=== PATIENT | female | born 1995 | race Hispanic/Latino ===

== ENCOUNTER 2023-02-23 21:43 | Emergency (ER) | payer SELFPAY ==
--- OUTSIDE RECORDS SUMMARY | 2023-02-23 21:46 | XMS REPORT | Continuity of Care Document ---
Author Name Unknown Address [address] [facility] [address] [place] [address] [facility] thconnect Address [address] [facility] [address] [place] [address] Care Team Providers Care Barge Captain Name Role Phone Doctor Unassigned, [place] Attending Clinician U DR BIBI Ngo Attending Clinician DR BIBI De La Cruz Admitting Clinician Tom sr Payers Payer Name Policy Type Policy Number Effective Date Expirati on Date Source Problems Condition Name Condition Details Condition Category Status Onset Date Resolution Date Last Treatment Date Treating Clinician Comments Source Tobacco use disorder Tobacco use disorder Disease Active 03-21 00:00: 00 [facility] BMI 26.0-26.9, adult BMI 26.0-26.9, adult Disease Active 03-21 00:00: 00 [facility] Status post tubal ligation Status post tubal ligation Disease Active 2017-03 00:00: 00 [facility] Allergies, Adverse Reactions, Alerts Allergy Name Allergy Type Status Severity Reaction(s) Onset Date Inactive Date Treating Clinician Comments Source Seafood/ Fish Propensi ty to adverse reaction s Active Hives 2016-03 00:00: 00 [facility] Social History Social Habit Start Date Stop Date Quantity Comments Source History of tobacco use 2011-03-11 00:00:00 Cigarette Smoker [facility] of Social function 2018-09-20 00:00:00 2018-09-20 00:00:00 [facility] Tobacco use and exposure 2018-03-21 00:00:00 2018-03-21 00:00:00 Smokeless tobacco non-user [facility] Alcohol intake 2018-03-21 00:00:00 2018-03-21 00:00:00 Current non-drinker of alcohol (finding) [facility] Tobacco Comment 2018-03-21 00:00:00 2018-03-21 00:00:00 smokes 3-4cigarettes per day [facility] Sex Assigned At 1995 00:00:00 1995 00:00:00 [facility] Smoking Status Start Date Stop Date Source Smokes tobacco daily 2018-03-21 00:00:00 [facility] Medications Ordered Medication Name Filled Medication Name Start Date Stop Date Current Medication? Ordering Clinician Indication Dosage Frequency Signature (SIG) Comments Components Source ferrous sulfate 325 mg (65 mg iron) tablet 2017-03 00:00: 00 Yes 325mg Take 1 tablet by mouth 2 (two) times daily. [facility] ferrous sulfate 325 mg (65 mg iron) tablet 2017-03 00:00: 00 Yes 325mg Take 1 tablet by mouth 2 (two) times daily. [facility] ferrous sulfate 325 mg (65 mg iron) tablet 2017-03 00:00: 00 Yes 325mg Take 1 tablet by mouth 2 (two) times daily. [facility] Immunizations Ordered Immunization Name Filled Immunization Name Date Status Comments Source Influenza Virus Vaccine Quad IM 3+ YRS Unknown Completed [facility] TDAP Unknown Completed [facility] MMR Unknown Completed [facility] Influenza Virus Vaccine Quad .5 mL IM 6+ MO (FLUZONE/FLULAVAL/FL UARIX) Unknown Completed [facility] Influenza Virus Vaccine Quad IM 3+ YRS Unknown Completed [facility] TDAP Unknown Completed [facility] MMR Unknown Completed [facility] Influenza Virus Vaccine Quad .5 mL IM 6+ MO (FLUZONE/FLULAVAL/FL UARIX) Unknown Completed [facility] Influenza Virus Vaccine Quad IM 3+ YRS Unknown Completed [facility] TDAP Unknown Completed [facility] MMR Unknown Completed [facility] Influenza Virus Vaccine Quad .5 mL IM 6+ MO (FLUZONE/FLULAVAL/FL UARIX) Unknown Completed [facility] Encounters Start Date/Time End Date/Time Encounter Type Admission Type Attending [facility] Care Department Encounter ID Source 2022-10-21 00:00:00 2022-10-21 00:00:00 Patient Secure Msg Doctor Unassigned, [place] [facility] [id number] [facility] 2022-10-21 00:00:00 2022-10-21 00:00:00 Patient Secure Msg Doctor Unassigned, [place] [facility] [id number] [facility] 2022-10-21 00:00:00 2022-10-21 00:00:00 Patient Secure Msg Doctor Unassigned, [place] [facility] [id number] [facility] 2019-02-12 19:26:00 2019-02-12 19:53:00 Emergency E BIBI [facility] [id number] [facility]
[2023-02-23] MEDS ORDERED: TDAP (DIPHTH,PERTUSS(ACELL),TET VAC) 0.5 ML VIAL IMVAC ONE (22:18)
[2023-02-23] MEDS ORDERED: ACETAMINOPHEN 325 MG TABLET ONE (22:18)
--- NOTE | 2023-02-23 22:30 | RAD REPORT ---
EXAM DESCRIPTION: RAD - Hand Right 3 View - 02/23/2023 10:23 pm CLINICAL HISTORY: Right hand pain status post injury animal bite FINDINGS: No fracture or dislocation is seen. Radiopaque foreign body not seen
--- NOTE | 2023-02-23 22:31 | RAD REPORT ---
EXAM DESCRIPTION: RAD - Knee Left 3 View - 02/23/2023 10:23 pm CLINICAL HISTORY: Left knee pain animal bite FINDINGS: No fracture or dislocation is seen. A radiopaque foreign body is not seen
--- NOTE | 2023-02-23 23:50 | EDPHYS ---
Physician Documentation [facility] Name: Fransisca Rodriguez Age: 27 yrs Sex: Female : 1995 Arrival Date: 02/23/2023 Time: 21:43 Bed Treatment Private MD: ED Physician Rojas Smith HPI: 02/23 22:00 This 27 yrs old Female presents to ER via Ambulatory with complaints of Knee cp Injury - left, Hand Injury - right, Dog Bite. 22:00 The patient was bitten on the left knee and right hand, by a dog, as a result of being cp attacked by the animal, at home. 22:00 Onset: The symptoms/episode began/occurred just prior to arrival. Animal information: cp known, family dog. Secondary to the bite the patient reports an abrasion, a laceration, that is superficial. Associated signs and symptoms: Pertinent positives: pain at site. Severity of symptoms: in the emergency department the symptoms are unchanged, despite home interventions. 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 Last tetanus immunization: unknown, Flu vaccine is not up to date. - Social history:: Smoking status: Patient reports the use of cigarette tobacco products, 5 per day, Patient uses alcohol, but reports only rare drinking. Patient/guardian denies using street drugs. ROS: 22:05 MS/extremity: Positive for laceration, of the left knee and right hand, Negative for cp decreased range of motion, deformity, 22:05 Constitutional: Negative for body aches, chills, fever, cp 22:05 Neck: Negative for pain with movement, pain at rest, 22:05 Respiratory: Negative for cough, shortness of breath, wheezing, 22:05 Abdomen/GI: Negative for abdominal pain, nausea, vomiting, and diarrhea, 22:05 Back: Negative for pain at rest, pain with movement, 22:05 Neuro: Negative for altered mental status, numbness, 22:05 All other systems are negative, Exam: 22:10 Head/Face: Normocephalic, atraumatic. cp 22:10 Constitutional: The patient appears in no acute distress, alert, awake, non-toxic, well developed, well nourished, uncomfortable, 22:10 Chest/axilla: Inspection: normal, 22:10 Cardiovascular: Rate: normal, 22:10 Respiratory: the patient does not display signs of respiratory distress, Respirations: normal, no use of accessory muscles, no retractions, 22:10 Musculoskeletal/extremity: Extremities: grossly normal except: noted in the right hand: Noted to small laceration palmar side middle phalanx of the middle finger with mild swelling and ecchymosis, on examination no observed tendon injury as patient has full range of motion and right middle digit is neurovascularly intact. On the dorsal side of the hand there is a smaller abrasion on the proximal phalanx of the right small digit with no active bleeding, noted in the left knee: Mild ecchymosis appreciated no break in the skin and open wounds noted, patient has full active range of motion of the left knee with some mild tenderness to the anterior knee appreciated on palpation, 22:10 Neuro: Orientation: to person, place \T\ time. Mentation: is normal, Vital Signs: 21:54 BP 128 / 80; Pulse 79; Resp 16; Temp 98.3(O); Pulse Ox 100% on R/A; Weight 56.7 kg (R); km8 Height 4 ft. 10 in. (R); Pain 3/10; 21:54 Body Mass Index 26.12 (56.70 kg, 147.32 cm) [facility] 21:54 Pain Scale: Adult km8 MDM: 22:03 Patient medically screened. cp 23:48 Data reviewed: vital signs, nurses notes, radiologic studies, plain films. cp 23:48 Differential diagnosis: superficial laceration, tendon injury, vascular injury, rabies, cp cellulitis. I considered the following discharge prescriptions or medication management in the emergency department Medications were administered in the Emergency Department. See MAR. Counseling: I had a detailed discussion with the patient and/or guardian regarding the historical points, exam findings, and any diagnostic results supporting the discharge/admit diagnosis, radiology results, to return to the emergency department if symptoms worsen or persist or if there are any questions or concerns that arise at home. Special discussion: I discussed in detail with the patient the higher chance of wound infection based on his presenting history. wound care. 02/23 21:54 Order name: XRAY Hand RIGHT 3 View; Complete Time: 23:43 cp 02/23 21:54 Order name: XRAY Knee LEFT 3 view; Complete Time: 23:43 cp 02/23 23:39 Order name: Wound Care; Complete Time: 00:01 cp Administered Medications: 22:26 Drug: Acetaminophen PO 650 mg PO once Route: PO; jb4 22:26 Drug: Tetanus-Diphtheria Toxoid IM Adult 0.5 ml IM once; Provide Vaccine Information jb4 Statement (VIS). {Psychology Assistant: [employer]; Exp: Sat Aug 03 2024; Lot #: [id number]; Series: 1 of ; Patient Consent: Obtained; Date/Time: ; Source Name: Fransisca Goldman; Source Relationship: Self; Address Information: [address] [place] [address], [place] [address]; ; Education: Provided; VIS Presented Date: ; VIS Publication: Tetanus/Diphtheria/Pertussis (Tdap/Td) VIS 04/05/2011 (historic)} Route: IM; Site: left deltoid; 02/24 00:15 Drug: Amoxicillin-Clavulanate PO 875 mg PO once Route: PO; jb4 Disposition: 23:46 Co-signature as Attending Physician, Rojas Smith MD I reviewed the patient's care rn provided by the Advanced Practice Provider and agree with the diagnosis and treatment plan. Disposition Summary: 02/23/23 23:49 Discharge Ordered Notes: Location: Home cp Problem: new cp Symptoms: have improved cp Condition: Stable cp Diagnosis - Bitten by dog cp - Laceration without foreign body of right hand, initial encounter cp - Pain in left knee cp Followup: cp - With: Private Physician - When: 2 - 3 days - Reason: Worsening of condition Discharge Instructions: - Discharge Summary Sheet cp - Elastic Bandage and RICE Therapy cp - Nonsutured Laceration Care cp - Acute Knee Pain, Adult cp - Animal Bite, Adult cp Forms: - Medication Reconciliation Form cp - Thank You Letter cp - Antibiotic Education cp - Prescription Opioid Use cp - Patient Portal Instructions cp - Leadership Thank You Letter cp - Work release form eb Prescriptions: - Augmentin 875-125 mg Oral Tablet - take 1 tablet ORAL route every 12 hours for 10 days; 20 tablet; Refills: 0, cp Product Selection Permitted Signatures: Dispatcher [employer] EDRojas Hernandez MD MD rn Page, Corey, PA PA cp Medhat Knutson RN RN jb4 Kiara Ramirez RN RN km8 Corrections: (The following items were deleted from the chart) 02/23 21:58 21:56 PMHx: None; km8 km8 02/24 23:45 23:41 Constitutional: The patient appears in no acute distress, alert, awake, cp non-toxic, well developed, well nourished, uncomfortable, cp 23:45 23:41 Head/Face: Normocephalic, atraumatic. cp cp 23:45 23:41 Chest/axilla: Inspection: normal, cp cp 23:45 23:41 Cardiovascular: Rate: normal, cp cp 23:45 23:41 Respiratory: the patient does not display signs of respiratory distress, cp Respirations: normal, no use of accessory muscles, no retractions, cp 23:45 23:41 Musculoskeletal/extremity: Extremities: grossly normal except: noted in the right cp hand: Noted to small laceration palmar side middle phalanx of the middle finger with mild swelling and ecchymosis, on examination no observed tendon injury as patient has full range of motion and right middle digit is neurovascularly intact. On the dorsal side of the hand there is a smaller abrasion on the proximal phalanx of the right small digit with no active bleeding, noted in the left knee: Mild ecchymosis appreciated no break in the skin and open wounds noted, patient has full active range of motion of the left knee with some mild tenderness to the anterior knee appreciated on palpation, cp 23:45 23:41 Neuro: Orientation: to person, place \T\ time. Mentation: is normal, cp cp
--- NOTE | 2023-02-23 23:50 | ER ---
Nurse's Notes [facility] Name: Fransisca Rodriguez Age: 27 yrs Sex: Female : 1995 Arrival Date: 02/23/2023 Time: 21:43 Bed Treatment Private MD: Diagnosis: Bitten by dog;Laceration without foreign body of right hand, initial encounter;Pain in left knee Presentation: 02/23 21:54 Chief complaint: Patient states: her own dog bit her right middle finger; bleeding km8 controlled; dog vaccines UTD; unknown last tetanus; pt also reports left knee bruising from bit, skin intact. Coronavirus screen: Client denies travel out of the [place] in the last 14 days. Ebola Screen: No symptoms or risks identified at this time. Initial Sepsis Screen: Does the patient meet any 2 criteria? No. Patient's initial sepsis screen is negative. Does the patient have a suspected source of infection? No. Patient's initial sepsis screen is negative. Risk Assessment: Do you want to hurt yourself or someone else? Patient reports no desire to harm self or others. Onset of symptoms was February 23, 2023 at 19:00. 21:54 Method Of Arrival: Ambulatory km8 21:54 Acuity: DAHIANA 4 km8 Triage Assessment: 21:57 General: Appears in no apparent distress. comfortable, Behavior is calm, cooperative, km8 appropriate for age. Pain: Complains of pain in right middle finger Pain currently is 3 out of 10 on a pain scale. Quality of pain is described as throbbing. EENT: No signs and/or symptoms were reported regarding the EENT system. Neuro: Level of Consciousness is awake, alert, obeys commands, Oriented to person, place, time, situation. Cardiovascular: Capillary refill < 3 seconds Patient's skin is warm and dry. Respiratory: Airway is patent Respiratory effort is even, unlabored, Respiratory pattern is regular, symmetrical. GI: No signs and/or symptoms were reported involving the gastrointestinal system. : No signs and/or symptoms were reported regarding the genitourinary system. Derm: Skin is intact, Skin is dry, Skin is pink, warm \T\ dry. normal, Skin temperature is warm Wound noted right middle finger Wound is puncture Bruising that is on left knee. Musculoskeletal: No signs and/or symptoms reported regarding the musculoskeletal system. Circulation, motion, and sensation intact. Range of motion: intact in all extremities. Injury Description: Bite sustained to right middle finger caused by a dog, is was sustained 1-2 hours ago. 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 Historical: - Allergies: 21:56 No Known Allergies; - Home Meds: 21:56 None [Active]; - PMHx: 21:57 Anemia; - PSHx: 21:57 tubal ligation; Tonsillectomy; Historical Immunization: - Administered Vaccines 02/24 00:15 Amoxicillin-Clavulanate PO 875 mg jb4 02/23 22:26 Acetaminophen PO 650 mg 4 22:26 Tetanus-Diphtheria Toxoid IM Adult 0.5 ml 4 [employer] Flooring: [employer]; Exp: Sat Aug 03 2024; Lot #: [id number]; Series: 1 of 1; Patient Consent: Obtained; Date/Time: ; Source Name: Fransisca Goldman; Source Relationship: Self; Address Information: [address] [place] [address], [facility] [address]; ; Education: Provided; VIS Presented Date: ; VIS Publication: Tetanus/Diphtheria/Pertussis (Tdap/Td) VIS 04/05/2011 (historic) - Immunization history:: Client reports having NOT received the Covid vaccine. Last tetanus immunization: unknown, Flu vaccine is not up to date. - Social history:: Smoking status: Patient reports the use of cigarette tobacco products, 5 per day, Patient uses alcohol, but reports only rare drinking. Patient/guardian denies using street drugs. Screenin/15 00:16 [facility] ED Fall Risk Assessment (Adult) History of falling in the last 3 months, jb4 including since admission No falls in past 3 months (0 pts) Confusion or Disorientation No (0 pts) Score/Fall Risk Level 0 - 2 = Low Risk Oriented to surroundings, Maintained a safe environment. Abuse screen: Denies threats or abuse. Nutritional screening: No deficits noted. Tuberculosis screening: No symptoms or risk factors identified. Assessment: 02/23 22:30 Reassessment: Law enforcement notified of Dog bite. jb4 02/24 00:16 Reassessment: Patient appears in no apparent distress at this time. Patient and/or jb4 family updated on plan of care and expected duration. Pain level reassessed. Patient is alert, oriented x 3, equal unlabored respirations, skin warm/dry/pink. Vital Signs: 02/23 21:54 BP 128 / 80; Pulse 79; Resp 16; Temp 98.3(O); Pulse Ox 100% on R/A; Weight 56.7 kg (R); km8 Height 4 ft. 10 in. (R); Pain 3/10; 21:54 Body Mass Index 26.12 (56.70 kg, 147.32 cm) km8 21:54 Pain Scale: Adult km8 ED Course: 21:47 Patient arrived in ED. im 21:48 Silas Wise PA is PHCP. cp 21:48 Rojas Smith MD is Attending Physician. cp 21:56 Triage completed. km8 21:57 Arm band placed on right wrist. km8 22:25 XRAY Hand RIGHT 3 View In Process Unspecified. EDMS 22:25 XRAY Knee LEFT 3 view In Process Unspecified. EDMS 02/24 00:16 Patient has correct armband on for positive identification. Bed in low position. Call jb4 light in reach. Side rails up X 1. 00:16 No provider procedures requiring assistance completed. Patient did not have IV access jb4 during this emergency room visit. Administered Medications: 02/23 22:26 Drug: Acetaminophen PO 650 mg PO once Route: PO; jb4 22:26 Drug: Tetanus-Diphtheria Toxoid IM Adult 0.5 ml IM once; Provide Vaccine Information jb4 Statement (VIS). {Install[employer] Flooring: [employer]; Exp: Sat Aug 03 2024; Lot #: [id number]; Series: 1 of 1; Patient Consent: Obtained; Date/Time: ; Source Name: Fransisca Goldman; Source Relationship: Self; Address Information: [phone] [facility] [address], [facility] [address]; ; Education: Provided; VIS Presented Date: ; VIS Publication: Tetanus/Diphtheria/Pertussis (Tdap/Td) VIS 04/05/2011 (historic)} Route: IM; Site: left deltoid; 02/24 00:15 Drug: Amoxicillin-Clavulanate PO 875 mg PO once Route: PO; jb4 Outcome: 02/23 23:49 Discharge ordered by MD. nicole 02/24 00:16 Discharged to home ambulatory, jb4 Condition: stable Discharge instructions given to patient, Instructed on discharge instructions, follow up and referral plans. medication usage, Demonstrated understanding of instructions, follow-up care, medications, Prescriptions given X 1, 00:17 Patient left the ED. jb4 Signatures: Dispatcher [employer] EDMS Silas Wise PA PA cp Bryson, James, RN RN jb4 Christiane Calero Katie, RN RN km8 Corrections: (The following items were deleted from the chart) 02/23 21:58 21:56 PMHx: None; km8 km8
[2023-02-23] MEDS ORDERED: AMOX/K CLAV 875 MG TAB ONE (23:56)
[2023-02-24 01:57] VITALS: BP 128/80; TEMP 98.3; O2SAT 100
== END 2023-02-24 00:17 | disposition home or self-care (01) ==
LOC: ER 21:43
DX: S61.411A Laceration without foreign body of right hand, initial encounter (principal); M25.562 Pain in left knee; W54.0XXA Bitten by dog, initial encounter; Z23 Encounter for immunization
CPT/HCPCS: 90471; 99284

== ENCOUNTER 2024-01-13 15:27 | Emergency (ER) | payer SELFPAY ==
[2024-01-13] MEDS ORDERED: ACETAMINOPHEN 500 MG TAB ONE (16:15)
[2024-01-13] MEDS ORDERED: PROMETHAZINE 25 MG TABLET ONE (16:15)
[2024-01-13 16:27] LABS: Specific Gravity 1.024 (1.005-1.030)
[2024-01-13 16:36] LABS: SARS-CoV-2 Antigen CONTROL BLUE LINE VIS/BG OK; SARS-CoV-2 Antigen Rapid Res Negative (Negative)
[2024-01-13] MEDS ORDERED: IBUPROFEN 400 MG TAB ONE (16:45)
[2024-01-13] MEDS ORDERED: KETOROLAC 10 MG TAB ONE (16:45)
--- NOTE | 2024-01-13 16:53 | EDPHYS ---
Physician Documentation [facility] Name: Fransisca Ortega Age: 28 yrs Sex: Female : 1995 Arrival Date: 01/13/2024 Time: 15:27 Bed 20 Private MD: ED Physician Georges Narayanan HPI: 01/12 17:24 This 28 yrs old Female presents to ER via Ambulatory with complaints of Fever. snw 17:24 The patient reports fever, that was measured at 102 degrees Fahrenheit. Onset: The snw symptoms/episode began/occurred suddenly. Associated signs and symptoms: Pertinent positives: decreased appetite, sinus congestion, myalgia. Severity of symptoms: At their worst the symptoms were moderate severe. The patient has not experienced similar symptoms in the past. The patient has not recently seen a physician. with same s/s. 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 - Infectious Disease History:: Denies. - Social history:: Smoking status: . ROS: 17:26 Eyes: Negative for injury, pain, redness, and discharge, ENT: Negative for injury, snw pain, and discharge, Neck: Negative for injury, pain, and swelling, Cardiovascular: Negative for chest pain, palpitations, and edema, Respiratory: Negative for shortness of breath, cough, wheezing, and pleuritic chest pain, Abdomen/GI: Negative for abdominal pain, nausea, vomiting, diarrhea, and constipation, Back: Negative for injury and pain, : Negative for injury, bleeding, discharge, and swelling, MS/Extremity: Negative for injury and deformity, Skin: Negative for injury, rash, and discoloration, Neuro: Negative for headache, weakness, numbness, tingling, and seizure, Psych: Negative for depression, anxiety, suicide ideation, homicidal ideation, and hallucinations, 17:26 Constitutional: Positive for body aches, chills, fever, malaise, poor PO intake, Exam: 17:24 Head/Face: Normocephalic, atraumatic. Eyes: Pupils equal round and reactive to light, snw extra-ocular motions intact. Lids and lashes normal. Conjunctiva and sclera are non-icteric and not injected. Cornea within normal limits. Periorbital areas with no swelling, redness, or edema. ENT: Nares patent. No nasal discharge, no septal abnormalities noted. Tympanic membranes are normal and external auditory canals are clear. Oropharynx with no redness, swelling, or masses, exudates, or evidence of obstruction, uvula midline. Mucous membranes moist. Neck: Trachea midline, no thyromegaly or masses palpated, and no cervical lymphadenopathy. Supple, full range of motion without nuchal rigidity, or vertebral point tenderness. No Meningismus. Chest/axilla: Normal chest wall appearance and motion. Nontender with no deformity. No lesions are appreciated. Cardiovascular: Regular rate and rhythm with a normal S1 and S2. No gallops, murmurs, or rubs. Normal PMI, no JVD. No pulse deficits. Respiratory: Lungs have equal breath sounds bilaterally, clear to auscultation and percussion. No rales, rhonchi or wheezes noted. No increased work of breathing, no retractions or nasal flaring. Abdomen/GI: Soft, non-tender, with normal bowel sounds. No distension or tympany. No guarding or rebound. No evidence of tenderness throughout. Back: No spinal tenderness. No costovertebral tenderness. Full range of motion. Skin: Warm, dry with normal turgor. Normal color with no rashes, no lesions, and no evidence of cellulitis. MS/ Extremity: Pulses equal, no cyanosis. Neurovascular intact. Full, normal range of motion. Neuro: Awake and alert, GCS 15, oriented to person, place, time, and situation. Cranial nerves II-XII grossly intact. Motor strength 5/5 in all extremities. Sensory grossly intact. Cerebellar exam normal. Normal gait. Psych: Awake, alert, with orientation to person, place and time. Behavior, mood, and affect are within normal limits. 17:24 Constitutional: The patient appears alert, awake, febrile, lethargic, listless, uncomfortable, Vital Signs: 15:39 BP 129 / 76; Pulse 110; Resp 18; Temp 102.1(O); Pulse Ox 100% on R/A; Weight 54.43 kg; iw Height 4 ft. 10 in. ; 17:14 BP 105 / 59; Pulse 101; Resp 19; Temp 99.9; Pulse Ox 97% ; me1 15:39 Body Mass Index 25.08 (54.43 kg, 147.32 cm) iw MDM: 15:37 Medical Screening Exam initiated snw 17:25 Differential diagnosis: viral Infection, bacterial infection, bronchitis, pneumonia. snw Data reviewed: vital signs, nurses notes, lab test result(s). I considered the following discharge prescriptions or medication management in the emergency department Medications were administered in the Emergency Department. See MAR. Counseling: I had a detailed discussion with the patient and/or guardian regarding the historical points, exam findings, and any diagnostic results supporting the discharge/admit diagnosis, lab results, the need for outpatient follow up, for definitive care, to return to the emergency department if symptoms worsen or persist or if there are any questions or concerns that arise at home. Response to treatment: the patient's symptoms have mildly improved after treatment. Special discussion: Based on the history and exam findings, there is no indication for further emergent testing or inpatient evaluation. I discussed with the patient/guardian the need to see the primary care provider for further evaluation of the symptoms. 01/12 15:51 Order name: Flu; Complete Time: 16:47 01/12 15:51 Order name: SARS RAPID; Complete Time: 16:47 iw 01/12 15:51 Order name: Strep iw 01/12 16:09 Order name: PREGU; Complete Time: 16:31 [facility] 01/12 16:38 Order name: Throat Culture EDMS Administered Medications: 16:21 Drug: Promethazine PO 25 mg PO once Route: PO; me1 16:56 Follow up: Response: No adverse reaction; Nausea is decreased me1 16:21 Drug: Acetaminophen PO 1000 mg PO once Route: PO; me1 16:56 Follow up: Response: No adverse reaction; Temperature is decreased; Pain is decreased me1 16:47 Drug: Ibuprofen PO 800 mg PO once Route: PO; me1 16:56 Follow up: Response: No adverse reaction; Temperature is decreased; Pain is decreased me1 16:47 Drug: Ketorolac PO 10 mg PO once Route: PO; me1 16:56 Follow up: Response: No adverse reaction; Pain is decreased me1 16:55 Not Given (Duplicate Order): [id number] mg PO once me1 Disposition Summary: 01/13/24 16:52 Discharge Ordered Notes: Location: Home snw Condition: Stable snw Diagnosis - Influenza due to identified novel influenza A virus snw - Fever, unspecified snw Followup: snw - With: Emergency Department - When: As needed - Reason: Worsening of condition Followup: snw - With: Private Physician - When: 1 week - Reason: Recheck today's complaints, Continuance of care, Re-evaluation by your physician Discharge Instructions: - Discharge Summary Sheet snw - Fever, Adult snw - Influenza, Adult snw - Rehydration, Adult snw Forms: - Work release form snw - Medication Reconciliation Form snw - Antibiotic Education snw - Prescription Opioid Use snw - Patient Portal Instructions snw - Leadership Thank You Letter snw Prescriptions: - Zyrtec 10 mg Oral Tablet - take 1 tablet ORAL route once daily As needed; 20 tablet; Refills: 0, Product snw Selection Permitted - Tramadol 50 mg Oral Tablet - take 1 tablet ORAL route every 8 hours as needed; 12 tablet; Refills: 0, snw Product Selection Permitted - Pepcid 20 mg Oral Tablet - take 1 tablet ORAL route once daily; 20 tablet; Refills: 0, Product Selection snw Permitted - promethazine 25 mg Oral Tablet - take 1 tablet ORAL route every 6 hours As needed; 20 tablet; Refills: 0, snw Product Selection Permitted Signatures: Dispatcher [employer] EDPA Pastora Myers, ROSALIND-C SUPERVISOR MALTED MILK-Csnw Cheryl Garcia RN RN Sandra Wesley RN RN me1 Corrections: (The following items were deleted from the chart) 16:09 16:09 Test, Urine+[id number].BRZ ordered. EDPA EDMS
--- NOTE | 2024-01-13 16:53 | ER ---
Nurse's Notes [facility] Name: Fransisca Ortega Age: 28 yrs Sex: Female : 1995 Arrival Date: 01/13/2024 Time: 15:27 Bed 20 Private MD: Diagnosis: Influenza due to identified novel influenza A virus;Fever, unspecified Presentation: 01/12 15:39 Chief complaint: Patient states: cough ,congestion, headache, fever since last night , iw last tyelnol was 0600 today. Coronavirus screen: Client presents with at least one sign or symptom that may indicate coronavirus-19. Ebola Screen: No symptoms or risks identified at this time. Initial Sepsis Screen: Does the patient meet any 2 criteria? HR > 90 bpm. Does the patient have a suspected source of infection? No. Patient's initial sepsis screen is negative. Risk Assessment: Do you want to hurt yourself or someone else? Patient reports no desire to harm self or others. Onset of symptoms was January 12, 2024. 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 - Infectious Disease History:: Denies. - Social history:: Smoking status: . Screenin:06 [facility] ED Fall Risk Assessment (Adult) History of falling in the last 3 months, me1 including since admission No falls in past 3 months (0 pts) Confusion or Disorientation No (0 pts) Intoxicated or Sedated No (0 pts) Impaired Gait No (0 pts) Mobility Assist Device Used No (0 pt) Altered Elimination No (0 pt) Score/Fall Risk Level 0 - 2 = Low Risk Maintained a safe environment, Provided non-skid footwear, Hourly rounding (assess needs \T\ fall precautionary measures) done. Abuse screen: Denies threats or abuse. Nutritional screening: No deficits noted. Tuberculosis screening: No symptoms or risk factors identified. Assessment: 16:06 General: Appears uncomfortable, ill, well groomed, well developed, well nourished, me1 Behavior is calm, cooperative, appropriate for age, Reports cough ,congestion, headache, fever since last night , last Tylenol was 0600 today. Pain: Complains of pain in head Pain does not radiate. Pain currently is 3 out of 10 on a pain scale. Quality of pain is described as aching, Pain began gradually, 1 day ago. Is continuous. Neuro: Level of Consciousness is awake, alert, obeys commands, Oriented to person, place, time, situation, Appropriate for age. Neuro: Reports headache since last night. Cardiovascular: Patient's skin is warm and dry. Respiratory: Reports cough that is persistent Airway is patent Respiratory effort is even, unlabored, Respiratory pattern is regular, symmetrical. GI: No signs and/or symptoms were reported involving the gastrointestinal system. : No signs and/or symptoms were reported regarding the genitourinary system. EENT: Reports nasal congestion. Derm: Skin is intact, Skin is pale, Skin temperature is hot. Musculoskeletal: No signs and/or symptoms reported regarding the musculoskeletal system. Vital Signs: 15:39 BP 129 / 76; Pulse 110; Resp 18; Temp 102.1(O); Pulse Ox 100% on R/A; Weight 54.43 kg; iw Height 4 ft. 10 in. ; 17:14 BP 105 / 59; Pulse 101; Resp 19; Temp 99.9; Pulse Ox 97% ; me1 15:39 Body Mass Index 25.08 (54.43 kg, 147.32 cm) iw ED Course: 15:30 Patient arrived in ED. ra3 15:37 Pastora Myers FNP-C is [facility]. snw 15:37 Georges Narayanan MD is Attending Physician. snw 15:41 Triage completed. iw 15:41 Arm band placed on. iw 15:45 Sandra Wesley, EVER is Primary Nurse. me1 15:48 No apparent distress. Resting quietly. Awaiting lab results. bm7 15:48 COVID swab sent to lab. Flu and/or RSV swab sent to lab. Strep swab sent to lab. bm7 Patient maintains SpO2 saturation greater than 95% on room air. 16:06 Patient has correct armband on for positive identification. Bed in low position. Call me1 light in reach. Side rails up X 1. Provided Education on: POC. Verbalized understanding. . 16:06 No provider procedures requiring assistance completed. Patient did not have IV access me1 during this emergency room visit. 16:21 Urine collected: clean catch specimen, cloudy. me1 Administered Medications: 16:21 Drug: Promethazine PO 25 mg PO once Route: PO; me1 16:56 Follow up: Response: No adverse reaction; Nausea is decreased me1 16:21 Drug: Acetaminophen PO 1000 mg PO once Route: PO; me1 16:56 Follow up: Response: No adverse reaction; Temperature is decreased; Pain is decreased me1 16:47 Drug: Ibuprofen PO 800 mg PO once Route: PO; me1 16:56 Follow up: Response: No adverse reaction; Temperature is decreased; Pain is decreased me1 16:47 Drug: Ketorolac PO 10 mg PO once Route: PO; me1 16:56 Follow up: Response: No adverse reaction; Pain is decreased me1 16:55 Not Given (Duplicate Order): [id number] mg PO once me1 Medication: 16:06 VIS not applicable for this client. me1 Outcome: 16:52 Discharge ordered by MD. gutierres 17:15 Discharged to home ambulatory, with significant other, me1 17:15 Condition: stable 17:15 Discharge instructions given to patient, significant other, Instructed on discharge instructions, follow up and referral plans. medication usage, Demonstrated understanding of instructions, follow-up care, medications, Prescriptions given X 4, 17:15 Patient left the ED. me1 Signatures: Pastora Myers, C IRON WORKER-C C IRON WORKER-Csnw Cheryl Garcia RN RN iw Sulma Aguillon RN EVER 7 Sandra Wesley RN RN ne1 Melissa Lobato ra3 Corrections: (The following items were deleted from the chart) 16:05 15:39 Chief complaint: Patient states: cough ,congestion, headache, fever since last me1 night , last tyelnol was 0600 today
[2024-01-13 17:21] VITALS: BP 105/59; TEMP 99.9; O2SAT 97
== END 2024-01-13 17:15 | disposition home or self-care (01) ==
LOC: ER 15:27
DX: J10.1 Influenza due to other identified influenza virus with other respiratory manifestations (principal); Z11.52 Encounter for screening for COVID-19
CPT/HCPCS: 36415; 81025; 87070; 87081; 87804; 87811; 99284; Q0169